=== PATIENT | male | born 1960 | race Caucasian/White ===

== ENCOUNTER 2018-08-15 14:30 | Observation (INO) | payer BC, MEDICARE ==
[2018-08-15] VITALS (20 sets, daily range): BP systolic 92–151; BP diastolic 56–73; PULSE 67–100; RESP 15–26; Ht 170.2 cm; Wt 73.7 kg
[~2018-08-15] VITALS: Ht 170.2 cm; Wt 73.7 kg
--- NOTE | 2018-08-15 14:03 | HPN ---
Date/Time of Note Date/Time of Note DATE: 08/15/18 TIME: 14:03 Interval H&P Admission Note Pt. seen H&P reviewed: No system changes JOSHUA PAGE MD Aug 15, 2018 14:03
[~2018-08-15 14:30] MED LIST: CLINDAMYCIN 900 MG/50 ML D5W IVPB IVPB ONE
[2018-08-15] MEDS ORDERED: COLC0.6T6 PO (14:58)
[2018-08-15] MEDS ORDERED: PROPOFOL 20 ML ONE (15:30)
[2018-08-15] MEDS ORDERED: CEFAZOLIN 1 GM INJ ONE (15:30)
[2018-08-15] MEDS ORDERED: ROCURONIUM 50 MG INJ ONE (15:30)
[2018-08-15] MEDS ORDERED: NEOSTIGMINE 3 MG/3 ML SYRINGE ONE (15:30)
[2018-08-15] MEDS ORDERED: GLYCOPYRROLATE 0.4 MG INJ ONE (15:30)
[2018-08-15] MEDS ORDERED: FENTAnyl 50 MCG/ML VIAL ONE ×2 (15:31→17:38)
[2018-08-15] MEDS ORDERED: DEXAMETHASONE 4 MG/ML 5 ML INJ ONE (15:31)
[2018-08-15] MEDS ORDERED: ROPIVACAINE 0.5 % 30 ML VIAL ONE (15:31)
[2018-08-15] MEDS ORDERED: MIDAZOLAM 1 MG/ML 2 ML INJ ONE (15:31)
[2018-08-15] MEDS ORDERED: ONDANSETRON 4 MG INJ ONE (15:31)
[2018-08-15] MEDS ORDERED: ALBUTEROL 0.083% (NEB) 2.5 MG/3 ML AMP HHN PRN (16:00)
[2018-08-15] MEDS ORDERED: IPRATROPIUM (NEB) 0.5 MG/2.5 ML AMP HHN PRN (16:00)
[2018-08-15] MEDS ORDERED: EPHEDrine SULFATE 50 MG/5 ML SYG IV PRN (16:00)
[2018-08-15] MEDS ORDERED: hydrALAzine 20 MG INJ IV PRN (16:00)
[2018-08-15] MEDS ORDERED: DIPHENHYDRAMINE 50 MG INJ IV PRN (16:00)
[2018-08-15] MEDS ORDERED: HYDROmorphONE 1 MG/5 ML IV SYRINGE IV PRN ×3 (16:00)
[2018-08-15] MEDS ORDERED: ONDANSETRON 4 MG INJ IV PRN ×2 (16:00→19:30)
[2018-08-15] MEDS ORDERED: MEPERIDINE 25 MG INJ IV PRN (16:00)
[2018-08-15] MEDS ORDERED: FENTAnyl 50 MCG/ML VIAL IV PRN ×3 (16:00)
[2018-08-15] MEDS ORDERED: TRIMETHOBENZAMIDE 100 MG/ML VIAL IM PRN (16:00)
[2018-08-15] MEDS ORDERED: MIDAZOLAM 1 MG/ML 2 ML INJ IV PRN (16:00)
[2018-08-15] MEDS ORDERED: LABETALOL HCL 20MG INJ IV PRN (16:00)
--- NOTE | 2018-08-15 16:02 | PREAC ---
Date/Time of Note Date/Time of Note DATE: 08/15/18 TIME: 16:00 Anesthesia Eval and Record Evaluation Time Pre-Procedure Interview DATE: 08/15/18 TIME: 16:00 Age 57 Sex male NPO: 8 hrs Preoperative diagnosis RIGHT ANKLE TRIMALLEOLAR FRACTURE Planned procedure ORIF OF THE ABOVE Past Medical History Past Medical History: Includes (MGUS, LEUKOCYTOCLASTIC VASCULITIS, PSORIASIS, ECZEMA, MEDICAL CLEARANCE NOTED) Surgery & Anesthesia Issues No known issue Meds Anticoagulation: No Beta Ciara within 24 hr: No Reason Beta Ciara not given: Pt. not on B-Ciara Reported Medications Colchicine* (Colcrys*) 0.6 Mg Tablet, 0.6 MG PO DAILY PRN for PRN, TAB 08/15/18 Meds reviewed: Yes Allergies Coded Allergies: Penicillins (Verified Allergy, Mild, 08/15/18) Sulfa (Sulfonamide Antibiotics) (Verified Allergy, Mild, 08/15/18) codeine (Verified Allergy, Mild, 08/15/18) doxycycline (Verified Allergy, Mild, 08/15/18) levofloxacin (Verified Allergy, Mild, 08/15/18) nitrofurantoin (Verified Allergy, Mild, 08/15/18) Uncoded Allergies: steroids (Allergy, Mild, 08/14/18) Allergies Reviewed: Yes Labs/Studies Labs Reviewed: Reviewed by anesthesiologist test: N/A Studies: ECG (RBBB, SINUS CK), CXR (NAPD) Pre-procedure Exam Last vitals Vital Signs Date Temp Pulse Resp B/P (MAP) Pulse Ox O2 O2 Flow FiO2 Time Delivery Rate 08/15/18 97.6 67 16 151/72 95 Room Air 15:09 (98) Airway: Adequate mouth opening, Adequate thyromental dist Mallampati: Mallampati II Teeth: Normal Lung: Normal Heart: Normal ASA Physical Status ASA physical status: 2 Emergency: None Planned Anesthetic General/MAC: ETT Nerve block: Sciatic (right) Planned Pain Management Single shot nerve block, Parenteral pain med Pre-operative Attestations Prior to commencing anesthesia and surgery, the patient was re-evaluated, there was verification of: *The patient's identity *The results of appropriate recent lab work and preoperative vital signs *The above evaluation not changing prior to induction *Anesthetic plan, risk benefits, alternative and complications discussed with patient/family; questions answered; patient/family understands, accepts and wishes to proceed. Toby Roman M.D. Aug 15, 2018 16:02
[2018-08-15] MEDS ORDERED: hydrALAzine 20 MG INJ ONE (17:32)
[2018-08-15] MEDS ORDERED: BUPIVACAINE 0.5% (SDV) 30 ML INJ ONE (17:58)
[2018-08-15] MEDS ORDERED: NEOMYC/POLYMYX/BACIT 30 GM OINT ONE (18:00)
--- NOTE | 2018-08-15 19:19 | OPR ---
Date/Time of Note Date/Time of Note DATE: 08/15/18 TIME: 19:15 Operative Report Procedure Date: Aug 15, 2018 Preoperative Diagnosis Right ankle bimalleolar fracture Postoperative Diagnosis Right ankle bimalleolar ankle fracture Operation/Procedure Performed Right ankle open reduction internal fixation of bimalleolar ankle fracture Application of amniotic membrane to the right ankle Surgeon Mauricio Page MD Food Critic None Anesthesia Type: general, other (Popliteal and saphenous) Anesthesiologist: Toby Roman M.D. Tourniquet Time: 67 minutes at 250 mmHg Estimated Blood Loss: minimal Transfusion none Specimen None Grafts/Implants Arthrex 4-hole distal fibular locking plate, 2 3.0 mm quick fix titanium screws with washer Tubes/Drains None Complications none Pt Condition Post Procedure: stable Disposition: PACU Indications Patient is a 57-year-old gentleman who sustained a right ankle bimalleolar fracture approximately 1-2 weeks ago. Given the displacement of the fracture patient was indicated for surgery. Patient was cleared by his primary care physician in the preoperative setting. Risk Note: Patient was explained the risks and benefits of surgery and the patient's [place] language including not limited to infection, bleeding, injury to blood vessels, nerves, ligaments or tendons. Risks of anesthesia, deep vein thrombosis and need for reduce future surgery. Patient acknowledged these risk by signing the surgical consent form. Procedure Description The patient was met in the preoperative holding area, marked with the correct operative extremity confirmed with both patient and consent. The patient was then brought back in the operative theater, placed supine on operative table, g iven preoperative antibiotics and preoperative regional block anesthesia. The patient was then prepped and draped in the normal sterile fashion. All parties in the room did a timeout and everyone agreed it was the correct patient, and extremity and procedure. Attention was then turned initially to the distal fibular fracture. An incision was made over the the fibula. The incision was taken down to the fibula with care taken to avoid injury to the neurovascular structures. The fracture was identified and reduced and fixated with a distal fibular plate and fibula was reduced and fluoroscopy showed that there was fibular length and alignment and rotation had been re-achieved. Once this was shown, the wound was irrigated thoroughly. A manual external rotation stress xray was performed showing no syndesmosis widening. Attention was then brought over to the medial aspect of the ankle and incision was taken down over the medial aspect of the ankle where there was a medial malleolus fracture of the anterior colliculus. Fracture was curetted and irrigated and reduced. It was then fixated with 2 3.0 mm partially-threaded cancellus screws. The fracture segment well reduced in both AP lateral and oblique position. Amniotic membrane was laid over the medial and lateral ankle wounds To assist in wound healing. All wounds were thoroughly irrigated and closed with initially 2-0 Vicryl, followed by 3-0 Monocryl followed by 3-0 nylon in a vertical mattress fashion. All wounds were dressed with Xeroform, antibiotic ointment, 4 x 4s, 5 ABDs were placed and the patient was placed in a well-padded short leg splint. Tourniquet had been brought down prior to this and hemostasis had been achieved prior to the wound closure. The wounds were irrigated thoroughly prior to closure as well. All sponge and needle counts were correct. Patient was taken to the PACU in stable condition. The toes were warm and well- perfused in the PACU. MAURICIO PAGE MD Aug 15, 2018 19:19
[2018-08-15] MEDS ORDERED: DIPHENHYDRAMINE 25 MG CAP PO PRN (19:30)
[2018-08-15] MEDS ORDERED: ACETAMINOPHEN 500 MG TAB PO SCH (19:30)
[2018-08-15] MEDS: IBUPROFEN 800 MG TAB PO SCH ×2 (19:30→23:06)
[2018-08-15] MEDS: traMADol 50 MG TAB PO SCH ×2 (19:30→23:07)
[2018-08-15] MEDS ORDERED: ASCORBIC ACID 500 MG TAB.CHEW PO SCH (19:30)
--- NOTE | 2018-08-15 19:34 | CONS ---
Assessment/Plan Assessment/Plan Assessment/Plan (Daily) 57 yo male POD0 for ankle fracture surgery with placement of amniotic membrane for wound healing - Perioperative management per surgery - Monitor for inflammatory response post surgery given h/o vasculitis - Pain control - DVT ppx - PT/OT - Discharge planning per orthopedics Dr Moulton Consultation Date/Type/Reason Admit Date/Time Aug 15, 2018 at 19:19 Date/Time of Note DATE: 08/15/18 TIME: 19:32 Hx of Present Illness 57 yo male PODO for ankle fixation after fracture Patient reports history of leukocytoclastic vasculitis for which he takes colchicine PRN when flares. Manifestation sounds like palpable purpura. No symptoms currently Seen in PACU in good spirits. No current complaints. Pain controlled Constitutional: no complaints, improved Eyes: no complaints ENT: no complaints Respiratory: no complaints Cardiovascular: no complaints Gastrointestinal: no complaints Genitourinary: no complaints Musculoskeletal: no complaints Skin: no complaints Neurologic: no complaints Endocrine: no complaints Lymphatic: no complaints Psychological: no complaints, nl mood/affect Immunologic: no complaints Past Medical History Medical History: no pertinent history Home Meds Reported Medications Colchicine* (Colcrys*) 0.6 Mg Tablet, 0.6 MG PO DAILY PRN for PRN, TAB 08/15/18 Medications Current Medications Hydromorphone HCl (Dilaudid) 0.2 mg PACU PRN IV MILD PAIN 1-3; Start 08/15/18 at 16:00; Stop 08/15/18 at 20:00 Hydromorphone HCl (Dilaudid) 0.4 mg PACU PRN IV MOD PAIN 4-6; Start 08/15/18 at 16:00; Stop 08/15/18 at 20:00 Hydromorphone HCl (Dilaudid) 0.6 mg PACU PRN IV SEVERE PAIN 7-10; Start 08/15/18 at 16:00; Stop 08/15/18 at 20:00 Fentanyl (Sublimaze) 25 mcg PACU ORDER PRN IV MILD PAIN 1-3; Start 08/15/18 at 16:00; Stop 08/15/18 at 20:00 Fentanyl (Sublimaze) 50 mcg PACU ORDER PRN IV MOD PAIN 4-6; Start 08/15/18 at 16:00; Stop 08/15/18 at 20:00 Fentanyl (Sublimaze) 75 mcg PACU ORDER PRN IV SEVERE PAIN 7-10; Start 08/15/18 at 16:00; Stop 08/15/18 at 20:00 Ondansetron HCl (Zofran Inj) 4 mg PACU ORDER PRN IV NAUSEA/VOMITING Last administered on 08/15/18at 18:35; Admin Dose 4 MG; Start 08/15/18 at 16:00; Stop 08/15/18 at 20:00 Trimethobenzamide HCl (Tigan) 200 mg PACU ORDER PRN IM NAUSEA/VOMITING; Start 08/15/18 at 16:00; Stop 08/15/18 at 20:00 Labetalol HCl (Labetalol) 5 mg PACU ORDER PRN IV HIGH BLOOD PRESSURE; Start 08/15/18 at 16:00; Stop 08/15/18 at 20:00 Hydralazine HCl (Apresoline) 5 mg PACU ORDER PRN IV HIGH BLOOD PRESSURE; Start 08/15/18 at 16:00; Stop 08/15/18 at 20:00 Ephedrine Sulfate 5 mg PACU ORDER PRN IV BLOOD PRESSURE SUPPORT; Start 08/15/18 at 16:00; Stop 08/15/18 at 20:00 Albuterol (Proventil 0.083% (Neb)) 2.5 mg PACU ORDER PRN HHN .WHEEZING; Start 08/15/18 at 16:00; Stop 08/15/18 at 20:00 Ipratropium [place] (Atrovent 0.02% (Neb)) 0.5 mg PACU ORDER PRN HHN .WHEEZING; Start 08/15/18 at 16:00; Stop 08/15/18 at 20:00 Meperidine HCl (Demerol) 25 mg PACU ORDER PRN IV .RIGORS Last administered on 08/15/18at 18:35; Admin Dose 25 MG; Start 08/15/18 at 16:00; Stop 08/15/18 at 20:00 Diphenhydramine HCl (Benadryl) 25 mg PACU ORDER PRN IV .PRURITUS; Start 08/15/18 at 16:00; Stop 08/15/18 at 20:00 Midazolam HCl (Versed) 0.5 mg PACU ORDER PRN IV .ANXIETY; Start 08/15/18 at 16:00; Stop 08/15/18 at 20:00 Vancomycin HCl 100 ml @ 100 mls/hr Q12H IVPB ; Start 08/15/18 at 19:30; Stop 08/16/18 at 08:29; Status UNV Senna/Docusate Sodium (Senokot-S) 1 tab BID PO ; Start 08/15/18 at 21:00; Status UNV Acetaminophen (Tylenol Tab) 500 mg Q4H PO ; Start 08/15/18 at 19:30; Status UNV Ondansetron HCl (Zofran Inj) 4 mg Q4H PRN IV NAUSEA AND/OR VOMITING; Start 08/15/18 at 19:30; Status UNV Diphenhydramine HCl (Benadryl) 25 mg Q4H PRN PO ITCHING; Start 08/15/18 at 19:30; Status UNV Rivaroxaban (Xarelto) 10 mg WITH DINNER PO ; Start 08/16/18 at 18:00; Status UNV Acetaminophen (Tylenol Tab) 325 mg Q4H PRN PO MILD PAIN(1-3)OR ELEVATED TEMP; Start 08/15/18 at 19:30; Status UNV Gabapentin (Neurontin) 300 mg TID PO ; Start 08/15/18 at 21:00; Status UNV Tramadol HCl (Ultram) 50 mg Q6 PO ; Start 08/15/18 at 19:30; Status UNV Ibuprofen (Motrin) 800 mg Q6 PO ; Start 08/15/18 at 19:30; Status UNV Multivitamins/ Vitamin C (Poly-Vi-Zahra (Nicu)) 1 ml DAILY PO ; Start 08/16/18 at 09:00; Status UNV Cholecalciferol (Vitamin D) 10,000 unit DAILY PO ; Start 08/15/18 at 19:30; Status UNV Ascorbic Acid (Vitamin C) 1,000 mg DAILY PO ; Start 08/15/18 at 19:30; Status UNV Allergies: Coded Allergies: Penicillins (Verified Allergy, Mild, 08/15/18) Sulfa (Sulfonamide Antibiotics) (Verified Allergy, Mild, 08/15/18) codeine (Verified Allergy, Mild, 08/15/18) doxycycline (Verified Allergy, Mild, 08/15/18) levofloxacin (Verified Allergy, Mild, 08/15/18) nitrofurantoin (Verified Allergy, Mild, 08/15/18) Uncoded Allergies: steroids (Allergy, Mild, 08/14/18) Past Surgical History Past Surgical Hx: no surgical history Family History Significant Family History: no pertinent family hx Social History Alcohol Use: none Smoking Status: Former smoker Drug Use: none Exam/Review of Systems Exam Vitals Vital Signs Date Temp Pulse Resp B/P (MAP) Pulse Ox O2 O2 Flow FiO2 Time Delivery Rate 08/15/18 72 16 99/67 (78) 98 Room Air 19:24 08/15/18 2.0 18:49 08/15/18 100.0 18:28 Exam RLE in cast Appears well RRR CTAB Soft nt nd Constitutional: alert, oriented, well developed Psych: no complaints, nl mood/affect Head: normocephalic, atraumatic Eyes: nl conjunctiva, EOMI, nl lids, nl sclera, PERRL ENMT: nl external ears & nose, nl lips & teeth, nl nasal mucosa & septum Neck: supple, non-tender Respiratory: clear to auscultation, normal air movement Cardiovascular: regular rate and rhythm, nl pulses Gastrointestinal: soft, nl liver, spleen, non-tender Musculoskeletal: nl extremities to inspection, nl gait and stance Extremities: normal pulses Neurological: VETERINARY NURSE II-XII intact, nl mental status, nl speech, nl strength Skin: nl turgor; No rash or lesions Lymph: nl lymph nodes Results Results 24hrs Laboratory Tests Test 08/15/18 15:00 Prothrombin Time 12.9 Prothrombin Time Ratio 1.0 INR International Normalized Ratio 0.96 Activated Partial Thromboplast Time 30.2 Medications Medication Current Medications Hydromorphone HCl (Dilaudid) 0.2 mg PACU PRN IV MILD PAIN 1-3; Start 08/15/18 at 16:00; Stop 08/15/18 at 20:00 Hydromorphone HCl (Dilaudid) 0.4 mg PACU PRN IV MOD PAIN 4-6; Start 08/15/18 at 16:00; Stop 08/15/18 at 20:00 Hydromorphone HCl (Dilaudid) 0.6 mg PACU PRN IV SEVERE PAIN 7-10; Start 08/15/18 at 16:00; Stop 08/15/18 at 20:00 Fentanyl (Sublimaze) 25 mcg PACU ORDER PRN IV MILD PAIN 1-3; Start 08/15/18 at 16:00; Stop 08/15/18 at 20:00 Fentanyl (Sublimaze) 50 mcg PACU ORDER PRN IV MOD PAIN 4-6; Start 08/15/18 at 16:00; Stop 08/15/18 at 20:00 Fentanyl (Sublimaze) 75 mcg PACU ORDER PRN IV SEVERE PAIN 7-10; Start 08/15/18 at 16:00; Stop 08/15/18 at 20:00 Ondansetron HCl (Zofran Inj) 4 mg PACU ORDER PRN IV NAUSEA/VOMITING Last administered on 08/15/18at 18:35; Admin Dose 4 MG; Start 08/15/18 at 16:00; Stop 08/15/18 at 20:00 Trimethobenzamide HCl (Tigan) 200 mg PACU ORDER PRN IM NAUSEA/VOMITING; Start 08/15/18 at 16:00; Stop 08/15/18 at 20:00 Labetalol HCl (Labetalol) 5 mg PACU ORDER PRN IV HIGH BLOOD PRESSURE; Start 08/15/18 at 16:00; Stop 08/15/18 at 20:00 Hydralazine HCl (Apresoline) 5 mg PACU ORDER PRN IV HIGH BLOOD PRESSURE; Start 08/15/18 at 16:00; Stop 08/15/18 at 20:00 Ephedrine Sulfate 5 mg PACU ORDER PRN IV BLOOD PRESSURE SUPPORT; Start 08/15/18 at 16:00; Stop 08/15/18 at 20:00 Albuterol (Proventil 0.083% (Neb)) 2.5 mg PACU ORDER PRN HHN .WHEEZING; Start 08/15/18 at 16:00; Stop 08/15/18 at 20:00 Ipratropium [place] (Atrovent 0.02% (Neb)) 0.5 mg PACU ORDER PRN HHN .WHEEZING; Start 08/15/18 at 16:00; Stop 08/15/18 at 20:00 Meperidine HCl (Demerol) 25 mg PACU ORDER PRN IV .RIGORS Last administered on 08/15/18at 18:35; Admin Dose 25 MG; Start 08/15/18 at 16:00; Stop 08/15/18 at 20:00 Diphenhydramine HCl (Benadryl) 25 mg PACU ORDER PRN IV .PRURITUS; Start 08/15/18 at 16:00; Stop 08/15/18 at 20:00 Midazolam HCl (Versed) 0.5 mg PACU ORDER PRN IV .ANXIETY; Start 08/15/18 at 16:00; Stop 08/15/18 at 20:00 Vancomycin HCl 100 ml @ 100 mls/hr Q12H IVPB ; Start 08/15/18 at 19:30; Stop 08/16/18 at 08:29; Status UNV Senna/Docusate Sodium (Senokot-S) 1 tab BID PO ; Start 08/15/18 at 21:00; Status UNV Acetaminophen (Tylenol Tab) 500 mg Q4H PO ; Start 08/15/18 at 19:30; Status UNV Ondansetron HCl (Zofran Inj) 4 mg Q4H PRN IV NAUSEA AND/OR VOMITING; Start 08/15/18 at 19:30; Status UNV Diphenhydramine HCl (Benadryl) 25 mg Q4H PRN PO ITCHING; Start 08/15/18 at 19:30; Status UNV Rivaroxaban (Xarelto) 10 mg WITH DINNER PO ; Start 08/16/18 at 18:00; Status UNV Acetaminophen (Tylenol Tab) 325 mg Q4H PRN PO MILD PAIN(1-3)OR ELEVATED TEMP; Start 08/15/18 at 19:30; Status UNV Gabapentin (Neurontin) 300 mg TID PO ; Start 08/15/18 at 21:00; Status UNV Tramadol HCl (Ultram) 50 mg Q6 PO ; Start 08/15/18 at 19:30; Status UNV Ibuprofen (Motrin) 800 mg Q6 PO ; Start 08/15/18 at 19:30; Status UNV Multivitamins/ Vitamin C (Poly-Vi-Zahra (Nicu)) 1 ml DAILY PO ; Start 08/16/18 at 09:00; Status UNV Cholecalciferol (Vitamin D) 10,000 unit DAILY PO ; Start 08/15/18 at 19:30; Status UNV Ascorbic Acid (Vitamin C) 1,000 mg DAILY PO ; Start 08/15/18 at 19:30; Status UNV FELICIA ROD MD Aug 15, 2018 19:34
[2018-08-15] MEDS: CHOLECALCIFEROL 2,000 UNIT CAP PO SCH (21:29)
[2018-08-15] MEDS: GABAPENTIN 300 MG CAP PO SCH (21:29)
[2018-08-15] MEDS: SENNA/DOCUSATE NA (8.6MG/50MG) TAB PO SCH (21:30)
[2018-08-15] MEDS: ACETAMINOPHEN 325 MG TAB PO PRN (21:36)
[2018-08-15] MEDS: VANCOMYCIN 500 MG (PMX) 100 ML IVPB SCH (22:36)
[2018-08-16] MEDS: ACETAMINOPHEN 325 MG TAB PO PRN ×2 (03:52→23:40)
[2018-08-16] MEDS ORDERED: morphine 2 MG INJ IV PRN (04:00)
[2018-08-16 05:00] VITALS: BP 121/64; PULSE 77; RESP 18
[2018-08-16] MEDS: IBUPROFEN 800 MG TAB PO SCH ×3 (05:32→17:03)
[2018-08-16] MEDS: traMADol 50 MG TAB PO SCH ×4 (05:33→23:40)
[2018-08-16 07:57] VITALS: BP 108/61; PULSE 82; RESP 19
[2018-08-16] MEDS: GABAPENTIN 300 MG CAP PO SCH ×3 (08:31→20:33)
[2018-08-16] MEDS: MULTIVITAMINS THERAPEUTIC TAB PO SCH (08:31)
[2018-08-16] MEDS: SENNA/DOCUSATE NA (8.6MG/50MG) TAB PO SCH ×2 (08:32→20:32)
[2018-08-16] MEDS: ASCORBIC ACID 500 MG TAB PO SCH (08:32)
[2018-08-16] MEDS: CHOLECALCIFEROL 2,000 UNIT CAP PO SCH (09:39)
[2018-08-16] MEDS: VANCOMYCIN 500 MG (PMX) 100 ML IVPB SCH (09:40)
[2018-08-16] MEDS ORDERED: ASPIRIN (EC) 81 MG TAB PO ONE (12:30)
[2018-08-16 15:32] VITALS: BP 112/62; PULSE 78; RESP 18
--- NOTE | 2018-08-16 16:19 | CONS ---
Assessment/Plan Assessment/Plan Assessment/Plan (Daily) 57 yo male POD1 for ankle fixation - No current medical issues - Perioperative management per Dr Moulton - Pain control - PT/OT - DVT ppx Consultation Date/Type/Reason Admit Date/Time Aug 15, 2018 at 19:19 Initial Consult Date Date/Time of Note DATE: 08/16/18 TIME: 16:18 24 HR Interval Summary Free Text/Dictation Doing well Worked with PT Pain is controlled Exam/Review of Systems Exam Vitals Vital Signs Date Temp Pulse Resp B/P (MAP) Pulse Ox O2 O2 Flow FiO2 Time Delivery Rate 08/16/18 97.2 78 18 112/62 99 15:32 (79) 08/16/18 Room Air 07:57 08/15/18 2.0 18:49 Intake and Output 08/15/18 08/15/18 08/16/18 1515:00 23:00 07:00 IntakeIntake Total 1500 ml 300 ml OutputOutput Total 120 ml 400 ml BalanceBalance 1380 ml -100 ml Constitutional: alert, oriented, well developed Psych: no complaints, nl mood/affect Head: normocephalic, atraumatic Eyes: nl conjunctiva, EOMI, nl lids, nl sclera, PERRL ENMT: nl external ears & nose, nl lips & teeth, nl nasal mucosa & septum Neck: supple, non-tender Respiratory: clear to auscultation, normal air movement Cardiovascular: regular rate and rhythm, nl pulses Gastrointestinal: soft, nl liver, spleen, non-tender Musculoskeletal: nl extremities to inspection, nl gait and stance Extremities: normal pulses Neurological: EDGE FINISHER II-XII intact, nl mental status, nl speech, nl strength Skin: nl turgor; No rash or lesions Lymph: nl lymph nodes Results Results 24hrs Laboratory Tests Test 08/16/18 07:07 Lab Scanned Report REFERENCE LAB Medications Medication Current Medications Senna/Docusate Sodium (Senokot-S) 1 tab BID PO Last administered on 08/16/18at 08:32; Admin Dose 1 TAB; Start 08/15/18 at 21:00 Ondansetron HCl (Zofran Inj) 4 mg Q4H PRN IV NAUSEA AND/OR VOMITING; Start 08/15/18 at 19:30 Diphenhydramine HCl (Benadryl) 25 mg Q4H PRN PO ITCHING; Start 08/15/18 at 19:30 Acetaminophen (Tylenol Tab) 325 mg Q4H PRN PO MILD PAIN(1-3)OR ELEVATED TEMP Last administered on 08/16/18 03:52; Admin Dose 325 MG; Start 08/15/18 at 19:30 Gabapentin (Neurontin) 300 mg TID PO Last administered on 08/16/18 13:12; Admin Dose 300 MG; Start 08/15/18 at 21:00 Tramadol HCl (Ultram) 50 mg Q6 PO Last administered on 08/16/18 13:13; Admin Dose 50 MG; Start 08/15/18 at 19:30 Ibuprofen (Motrin) 800 mg Q6 PO Last administered on 08/16/18 13:13; Admin Dose 800 MG; Start 08/15/18 at 19:30; Stop 08/16/18 at 19:29 Multivitamins Therapeutic (Theragran) 1 tab DAILY PO Last administered on 08/16/18 08:31; Admin Dose 1 TAB; Start 08/16/18 at 09:00 Cholecalciferol (Vitamin D) 10,000 unit DAILY PO Last administered on 08/16/18 09:39; Admin Dose 10,000 UNIT; Start 08/15/18 at 19:30 Ascorbic Acid (Vitamin C) 1,000 mg DAILY PO Last administered on 08/16/18 08:32; Admin Dose 1,000 MG; Start 08/16/18 at 09:00 Ibuprofen (Motrin) 800 mg Q6 PO ; Start 08/16/18 at 19:29; Status Future Hold Morphine Sulfate (morphine) 2 mg Q4H PRN IV SEVERE PAIN LEVEL 7-10; Start 08/16/18 at 04:00 FELICIA ROD MD Aug 16, 2018 16:19
[2018-08-16] MEDS ORDERED: RIVAROXABAN 10 MG TABLET PO SCH (17:55)
[2018-08-16] MEDS ORDERED: IBUPROFEN 800 MG TAB PO SCH (19:29)
[2018-08-16 19:40] VITALS: BP 116/78; PULSE 64; RESP 18
[2018-08-17 02:31] VITALS: BP 140/65; PULSE 54; RESP 18
[2018-08-17] MEDS: traMADol 50 MG TAB PO SCH ×2 (06:01→12:15)
[2018-08-17 07:34] VITALS: BP 152/62; PULSE 67; RESP 19
--- NOTE | 2018-08-17 07:52 | PN ---
Date/Time of Note Date/Time of Note DATE: 08/16/18 TIME: 1230 Assessment/Plan Lines/Catheters IV Catheter Type (from Nrsg): Saline Lock Assessment/Plan Assessment/Plan POD#1 s/p Right ankle bimalleolar fracture ORIF - NWB to the RLE - ASA 81 mg po BID - PT to Gt - DC home today (08/16/18) when cleared by [facility] Page Subjective 24 Hr Interval Summary Patient doing well. Pain is controlled. Constitutional: no complaints Pain Control: well controlled Exam/Review of Systems Vital Signs Vitals Vital Signs Date Temp Pulse Resp B/P (MAP) Pulse Ox O2 O2 Flow FiO2 Time Delivery Rate 08/17/18 98.2 67 19 152/62 96 07:34 (92) 08/16/18 Room Air 07:57 08/15/18 2.0 18:49 Intake and Output 08/16/18 08/16/18 08/17/18 1515:00 23:00 07:00 IntakeIntake Total 1060 ml 700 ml OutputOutput Total 1500 ml 1050 ml BalanceBalance -440 ml -350 ml Exam Musculoskeletal: other (RLE/ splint intact, toes wwp) JOSHUA PAGE MD Aug 17, 2018 07:52
[2018-08-17] MEDS: GABAPENTIN 300 MG CAP PO SCH ×2 (08:45→13:00)
[2018-08-17] MEDS: ASCORBIC ACID 500 MG TAB PO SCH (08:45)
[2018-08-17] MEDS: MULTIVITAMINS THERAPEUTIC TAB PO SCH (08:46)
[2018-08-17] MEDS: SENNA/DOCUSATE NA (8.6MG/50MG) TAB PO SCH (08:46)
[2018-08-17] MEDS: CHOLECALCIFEROL 2,000 UNIT CAP PO SCH (08:46)
[2018-08-17] MEDS ORDERED: ASPIRIN (EC) 81 MG TAB PO SCH (09:00)
[2018-08-17] MEDS: ACETAMINOPHEN 325 MG TAB PO PRN (09:16)
== END 2018-08-17 13:45 | disposition home or self-care (01) ==
LOC: SDS 14:30 → REC 19:19 → MS1 20:30
PROVIDERS: ADMIT Orthopaedic Surgery; ATTEND Orthopaedic Surgery
DX: S82.841A Displaced bimalleolar fracture of right lower leg, initial encounter for closed fracture (principal); R00.1 Bradycardia, unspecified; L40.9 Psoriasis, unspecified; X58.XXXA Exposure to other specified factors, initial encounter; Y93.89 Activity, other specified; Y92.89 Other specified places as the place of occurrence of the external cause; Y99.8 Other external cause status
CPT/HCPCS: 27814; 73610; 82306; 85610; 85730; 97116; 97161; 97530; 99217; C1713; G0378; J0360; J2175; J2250; J2270; J2405; J2710; J2795; J3010; J3370; J0690; J1100